=== PATIENT | female | born 1980 | race Caucasian/White ===

== ENCOUNTER 2016-12-24 14:58 | Day surgery (SDC) | payer MEDICAID ==
[~2016-12-24] VITALS: Ht 157.5 cm; Wt 113.4 kg
[~2016-12-24 14:58] MED LIST: NORG1TAB53; OMEP20CA4
[2016-12-24] MEDS ORDERED: LACTATED RINGERS 1,000 ML IV SCH (15:45)
[2016-12-24 16:06] LABS: CLARITY URINE CLEAR (CLEAR); COLOR URINE DARK YELLOW (YELLOW); GLUCOSE URINE NEGATIVE (NEGATIVE); KETONES URINE 2+ (NEGATIVE); LEUKOCYTE ESTERASE URINE TRACE (NEGATIVE); NITRITE URINE NEGATIVE (NEGATIVE); OCCULT BLOOD URINE 1+ (NEGATIVE); PROTEIN URINE NEGATIVE (NEGATIVE); SPECIFIC GRAVITY URINE 1.028 (1.005-1.030); UROBILINOGEN URINE 0.2 E.U./dL (0.2-1.0)
[2016-12-24] MEDS ORDERED: SENN8.6T71 PO (16:23)
[2016-12-24] MEDS ORDERED: DOCU-150 PO (16:23)
[2016-12-24] MEDS ORDERED: CEPH500T PO (16:23)
[2016-12-24] MEDS ORDERED: PROC10TA PO (16:23)
[2016-12-24] MEDS ORDERED: METHYLERGONOVINE MALEATE 0.2 MG/ML ONE (17:51)
[2016-12-24] MEDS ORDERED: HYDROCODONE/ACETAMINOPHEN 5/325MG TABLET PO PRN (18:15)
[2016-12-24] MEDS ORDERED: MORPHINE SULFATE 4 MG/ML CPJ (NOT FOR IM USE) IV PRN (18:15)
[2016-12-24 18:51] VITALS: BP 112/65
== END 2016-12-24 20:20 | disposition home or self-care (01) ==
LOC: OR 14:58
PROVIDERS: ATTEND Obstetrics & Gynecology
DX: O02.1 Missed abortion (principal)
CPT/HCPCS: 59840; 81001; 88305; J2210; J2270; J7120

== ENCOUNTER 2017-05-01 19:14 | Emergency (ER) | payer MEDICAID ==
[~2017-05-01] VITALS: Ht 157.5 cm; Wt 99.0 kg
[~2017-05-01 19:14] MED LIST changes: +CEPH500T PO; +DOCU-150 PO; +PROC10TA PO; +SENN8.6T71 PO
[2017-05-01] MEDS ORDERED: IBUPROFEN 800MG TABLET PO ONE (20:00)
[2017-05-01 21:36] VITALS: BP 122/85
== END 2017-05-01 21:37 | disposition home or self-care (01) ==
LOC: ER 20:18
DX: J06.9 Acute upper respiratory infection, unspecified (principal); R19.7 Diarrhea, unspecified
CPT/HCPCS: 71010; 81025; 99283

== ENCOUNTER 2019-06-10 13:39 | Emergency (ER) | payer MEDICAID ==
[~2019-06-10] VITALS: Ht 157.5 cm; Wt 104.0 kg
[~2019-06-10 13:39] MED LIST changes: -PROC10TA PO; +PROC10TA17 PO
[2019-06-10 18:54] VITALS: BP 138/67
== END 2019-06-10 18:57 | disposition home or self-care (01) ==
LOC: ER 13:39
DX: R05 Cough (principal)
CPT/HCPCS: 71045; 81025; 99283